=== PATIENT | male | born 2000 | race African-American/Black ===

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

== ENCOUNTER 2022-06-16 12:58 | Emergency (ER) | payer SELFPAY ==
[2022-06-16] MEDS ORDERED: predniSONE 20 MG TABLET (UD) PO ONE (13:07)
[2022-06-16] MEDS ORDERED: ALBUTEROL SO4 2.5/IPRATROPIUM 0.5 INH SOL 3 ML VIAL.NEB. NEB ONE ×4 (13:07→13:52)
[2022-06-16 13:12] VITALS: BP 139/83; TEMP 99.7; BMI 22.8
[2022-06-16] MEDS ORDERED: ACETAMINOPHEN 325 MG TABLET (FP) ONE (13:14)
[2022-06-16] MEDS ORDERED: predniSONE 20 MG TABLET (UD) ONE (13:14)
[2022-06-16] MEDS ORDERED: ACETAMINOPHEN 325 MG TABLET (FP) PO ONE (13:14)
[2022-06-16 14:27] VITALS: PULSE 109
[2022-06-16 15:09] VITALS: RESP 18
== END 2022-06-16 15:24 | disposition home or self-care (01) ==
LOC: FER 12:58
PROC: 3E0F7GC Introduction of Other Therapeutic Substance into Respiratory Tract, Via Natural or Artificial Opening (ICD-10-PCS; principal; 2022-06-16)
DX: B34.9 Viral infection, unspecified (principal); J45.901 Unspecified asthma with (acute) exacerbation
CPT/HCPCS: 0241U-QW; 71045-TC-FY; 99284-25

== ENCOUNTER 2024-03-18 21:52 | Emergency (ER) | payer OTHER ==
[2024-03-18 22:04] VITALS: BP 117/75; PULSE 67; RESP 16; TEMP 98.4; BMI 22.8
[2024-03-18] MEDS ORDERED: ACETAMINOPHEN INJECTION 100 ML IVPB ONE (22:37)
[2024-03-18] MEDS: ACETAMINOPHEN 1000 MG/100 ML BAG IVPB ONE (22:45)
[2024-03-18] MEDS: SODIUM CHLORIDE 1,000 ML IV STA (22:45)
[2024-03-18 22:53] LABS: HEMATOCRIT 43.7 % (35.4-49); HEMOGLOBIN 14.9 G/dL (11.7-16.9); MCH 31.1 pg (25.7-33.7); MEAN CELL VOLUME 91.5 fl (80-96); PLATELET COUNT 204.1 10^3/uL (134-434); RBC 4.78 10^6/uL (4.00-5.60); WHITE BLOOD COUNT 11.1 10^3/uL (4.0-10.8)
[2024-03-18 23:02] LABS: INR 1.2 (0.83-1.09); PROTHROMBIN TIME (PATIENT) 13.6 SEC (9.7-13.0)
[2024-03-18 23:06] LABS: PLATELET ESTIMATE ADEQUATE
[2024-03-18 23:13] LABS: ALBUMIN 4.5 g/dl (3.4-5.0); BILIRUBIN,TOTAL 1.6 mg/dl (0.2-1); CALCIUM 9.5 mg/dl (8.5-10.1); CREATININE 1.1 mg/dl (0.6-1.3); POTASSIUM 3.7 mmol/L (3.5-5.1); TOT PROT 7.2 g/dl (6.4-8.2)
[2024-03-19] MEDS ORDERED: ONDANSETRON 4 MG/2 ML VIAL ONE (02:21)
[2024-03-19] MEDS: ONDANSETRON 4 MG/2 ML VIAL IVPUSH ONE (02:25)
[2024-03-19 04:53] LABS: URINE COLOR YELLOW
[2024-03-19 04:54] LABS: URINE APPEARANCE CLEAR; URINE BILIRUBIN NEGATIVE (NEGATIVE); URINE GLUCOSE (UA) NEGATIVE (NEGATIVE); URINE KETONE NEGATIVE (NEGATIVE)
[2024-03-19 04:55] LABS: PH,URINE 7.5 (5.0-8.0); URINE PROTEIN N (NEGATIVE)
[2024-03-19 04:56] LABS: URINE LEUK ESTERASE NEGATIVE (NEGATIVE); URINE NITRITE NEGATIVE (NEGATIVE); URINE UROBILINOGEN 0.2 mg/dL (0.2-1.0)
== END 2024-03-19 02:43 | disposition home or self-care (01) ==
LOC: FER 21:52
PROC: 3E033NZ Introduction of Analgesics, Hypnotics, Sedatives into Peripheral Vein, Percutaneous Approach (ICD-10-PCS; principal; 2024-03-18)
PROC: 3E033GC Introduction of Other Therapeutic Substance into Peripheral Vein, Percutaneous Approach (ICD-10-PCS; 2024-03-18)
PROC: 3E0337Z Introduction of Electrolytic and Water Balance Substance into Peripheral Vein, Percutaneous Approach (ICD-10-PCS; 2024-03-18)
DX: K52.9 Noninfective gastroenteritis and colitis, unspecified (principal); R11.0 Nausea; R10.30 Lower abdominal pain, unspecified
CPT/HCPCS: 36415; 74177-TC; 80053; 81003; 85027; 85610; 99285-25; J0131; Q9967